=== PATIENT | female | born 2000 | race Hispanic/Latino ===

== ENCOUNTER 2025-02-20 06:09 | Emergency (ER) | payer BC, MEDICAID ==
[~2025-02-20] VITALS: Ht 152.4 cm; Wt 68.0 kg
--- NOTE | 2025-02-20 06:30 | NUR ---
PT CARE ASSUMED AT THIS TIME. PT GIVEN A URINE CUP TO COLLECT URINE AT THIS TIME.
[2025-02-20] MEDS: ondanSETRON 4MG INJ IVP ONE (06:42)
[2025-02-20 06:56] LABS: BASOPHILS # (AUTO) 0.06 K/uL (0.00-0.20); BASOPHILS % (AUTO) 0.4 % (0.0-5.0); EOSINOPHILS # (AUTO) 0.03 K/uL (0.00-0.70); EOSINOPHILS % (AUTO) 0.2 % (0.0-8.0); HEMATOCRIT 38.9 % (36-48); IMMATURE GRANULOCYTE ABSOLUTE 0.15 K/uL (0-1); LYMPHOCYTES # (AUTO) 2.4 K/uL (1.0-4.8); LYMPHOCYTES % (AUTO) 14.4 % (21.0-51.0); MEAN CORPUSCULAR HEMOGLOBIN 30.9 pg (27.0-33.0); MEAN CORPUSCULAR VOLUME 88.4 fL (79-99); MONOCYTES # (AUTO) 0.9 K/uL (0.1-1.0); MONOCYTES % (AUTO) 5.3 % (3.0-13.0); NEUTROPHILS # (AUTO) 13.1 K/uL (1.8-7.7); NEUTROPHILS % (AUTO) 78.8 % (40.0-77.0); PLATELET COUNT (AUTO) 377 K/uL (130-400); RED CELL DISTRIBUTION WIDTH 13.2 % (11.0-15.5); WHITE BLOOD COUNT (AUTO) 16.5 K/uL (4.8-10.8)
--- NOTE | 2025-02-20 07:02 | NUR ---
REPORT GIVEN TO KARINA BRAUN AT THIS TIME
[2025-02-20 07:19] LABS: POTASSIUM 3.6 mmol/L (3.5-5.1)
[2025-02-20] MEDS: acetaMINOPHEN 500 MG TABLET PO ONE (07:38)
[2025-02-20 08:13] LABS: APPEARANCE,URINE CLOUDY (CLEAR); BILIRUBIN,URINE NEGATIVE (NEGATIVE); COLOR,URINE LIGHT-YELLOW (YELLOW); GLUCOSE, URINE (UA) NEGATIVE (NEGATIVE); KETONES,URINE 40 mg/dL (NEGATIVE); LEUKOCYTE ESTERASE ,URINE 25 Leu/uL (NEGATIVE); NITRATE,URINE NEGATIVE (NEGATIVE); OCCULT BLOOD,URINE SMALL (NEGATIVE); PH,URINE 5.5 (5.0-8.0); PROTEIN,URINE NEGATIVE (NEGATIVE); UROBILINOGEN,URINE 0.2 mg/dL (0.2-1.0)
[2025-02-20 08:16] LABS: ADD UA MICROSCOPIC YES
[2025-02-20 08:19] LABS: AMPHET/METH SCREEN,URINE NEGATIVE (NEGATIVE); BARBITURATE SCREEN, URINE NEGATIVE (NEGATIVE); BENZODIAZEPINES SCREEN,URINE NEGATIVE (NEGATIVE); CANNABINOID SCREEN,URINE POSITIVE (NEGATIVE); COCAINE SCREEN,URINE NEGATIVE (NEGATIVE); MUCUS,URINE RARE LPF (None Seen); OPIATE SCREEN,URINE NEGATIVE (NEGATIVE); PHENCYCLIDINE SCREEN,URINE NEGATIVE (NEGATIVE); SQUAMOUS EPITHELIAL CELL,UR MOD /HPF (0-2)
[2025-02-20] MEDS: PANTOPrazole 40 MG/VIAL IVP ONE (08:29)
[2025-02-20] MEDS: 0.9%NACL 1000ML 1,000 ML IV ONE (08:29)
[2025-02-20] MEDS: ketOROlac 30MG VIAL (30MG/ML) IVP ONE (09:26)
[2025-02-20 09:29] LABS: BILIRUBIN,DIRECT 0.1 mg/dL (0.0-0.3); BILIRUBIN,TOTAL 0.3 mg/dL (0.2-1.0); TOTAL PROTEIN, SERUM 7.9 g/dL (6.0-8.3)
--- NOTE | 2025-02-20 10:22 | ERN ---
General Chief Complaint: Nausea,Vomiting,Diarrhea Stated Complaint: N/V, ABD PAIN Time Seen by MD: 07:17 Source: patient History of Present Illness Initial Comments Patient is a 24-year-old female coming in to be evaluated for generalized abdominal discomfort and nauseousness in the vomiting. Per patient this has been ongoing for a couple of days. Patient states he was told she had an ovarian cyst but has not followed up with [employer] yet. Allergies: Coded Allergies: No Known Allergies (Unverified Allergy, Unknown, 02/20/25) Past Medical History Past Medical History: No Pertinent History Past Surgical History: None Female( History) LMP: Jan 29, 2025 ROS Dictation CONSTITUTIONAL: No chills, no fever, no weakness, no diaphoresis, no malaise. HEAD/FACE: No signs of trauma. EENT: No eye pain, no blurred vision, no tearing, no double vision, no ear p ain, no ear discharge, no nose pain, no nasal congestion, no throat pain, no throat swelling, no mouth pain. RESPIRATORY: No cough, no orthopnea, no SOB, no stridor, no wheezing. CARDIOVASCULAR: No chest pain, no edema, no palpitations, no syncope. GASTROINTESTINAL/ABDOMINAL: abdominal pain, no constipation, no diarrhea, nausea, vomiting. GENITOURINARY: No abnormal discharge, no dysuria, no frequent urination, no hematuria. No complaints of pain in the genitals. MUSCULOSKELETAL: No back pain, no gout, no joint pain, no joint swelling, no muscle pain, no muscle stiffness, no neck pain. INTEGUMENTARY: No change in color, no change in hair/nails, no dryness, no lesion, no lumps, no rash. NEUROLOGICAL/PSYCH: No anxiety, not depressed, no emotional problem, no headache, no numbness, no pre-existing deficit, no history of seizures, no tremors, no weakness. HEMATOLOGIC/LYMPHATIC: Not anemic, no history of blood clots, no apparent bleeding, no bruising, glands not swollen. All Systems Negative, Except as Noted. Physical Exam Physical Exam Dictation VITAL SIGNS: Reviewed. GENERAL APPEARANCE: Alert, oriented x3, no acute distress, obese. HEAD AND FACE: Non-traumatic. EYES: PERRL, pink conjunctivas, eyelid no trauma, anterior chamber clear. EARS: Pinnas intact and no signs of trauma or erythema. Ear canals clear and no discharge. TMs no erythema. NOSE: No discharge, no bleeding. OROPHARYNX: Mouth normal, teeth no caries, tongue pink. Pharynx clear, no mony thema. Tonsils no exudates, no abscesses noted. Mucous membrane moist. NECK: Supple, non-tender, no thyromegaly, no masses, no JVD, no bruits. BREAST: Deferred. CHEST: No tenderness, no crepitus, no paradoxical movement, no retractions. LUNGS: Clear, well-ventilated, symmetric, no rales, no wheezing, no rhonchi, no stridor, good breath sounds bilaterally. HEART: Regular rate, regular rhythm, no murmur, no gallops. VASCULAR: No peripheral edema. ABDOMEN: Soft, positive bowel sounds, nondistended, no guarding, lower abdominal tender, no rebound, no masses no hepatomegaly, no splenomegaly, no Uriarte's sign, no hernias. RECTAL: Deferred. GENITAL: Deferred. NEUROLOGICAL: Normal speech, gross motor function intact, gross sensory function intact. MUSCULOSKELETAL: Neck nontender, full range of motion, back nontender, full range of motion. EXTREMITIES: Nontender, full range of motion. SKIN: Color pink, dry, no turgor, no rash, no lacerations, no abrasions, no contusions. LYMPHATICS: Deferred. Results Laboratory and Microbiology Lab and Micro Result Laboratory Tests Test 02/20/25 06:35 02/20/25 07:25 White Blood Count 16.5 K/uL (4.8-10.8) H Red Blood Count 4.40 MIL/uL (4.00-5.50) Hemoglobin 13.6 g/dL (12.0-16.0) Hematocrit 38.9 % (36-48) Mean Corpuscular Volume 88.4 fL (79-99) Mean Corpuscular Hemoglobin 30.9 pg (27.0-33.0) Mean Corpuscular Hemoglobin Concent 35.0 g/dL (32.0-36.0) Red Cell Distribution Width 13.2 % (11.0-15.5) Platelet Count 377 K/uL (130-400) Mean Platelet Volume 10.6 fL (7.5-10.5) H Immature Granulocyte % (Auto) 0.9 % (0-1) Neutrophils (%) (Auto) 78.8 % (40.0-77.0) H Lymphocytes (%) (Auto) 14.4 % (21.0-51.0) L Monocytes (%) (Auto) 5.3 % (3.0-13.0) Eosinophils (%) (Auto) 0.2 % (0.0-8.0) Basophils (%) (Auto) 0.4 % (0.0-5.0) Neutrophils # (Auto) 13.1 K/uL (1.8-7.7) H Lymphocytes # (Auto) 2.4 K/uL (1.0-4.8) Monocytes # (Auto) 0.9 K/uL (0.1-1.0) Eosinophils # (Auto) 0.03 K/uL (0.00-0.70) Basophils # (Auto) 0.06 K/uL (0.00-0.20) Absolute Immature Granulocyte (auto 0.15 K/uL (0-1) Nucleated Red Blood Cells 0.0 % (0.0-0.19) Sodium Level 139 mmol/L (136-145) Potassium Level 3.6 mmol/L (3.5-5.1) Chloride Level 103 mmol/L (101-111) Carbon Dioxide Level 19 mmol/L (21-32) L Blood Urea Nitrogen 7 mg/dL (7-18) Creatinine 1.0 mg/dL (0.5-1.0) Glomerular Filtration Rate Calc 80 mL/min (>90) Random Glucose 147 mg/dL (70-105) H Total Calcium 9.0 mg/dL (8.5-10.1) Total Bilirubin 0.3 mg/dL (0.2-1.0) Direct Bilirubin 0.1 mg/dL (0.0-0.3) Aspartate Amino Transf (AST/SGOT) 19 U/L (10-37) Alanine Aminotransferase (ALT/SGPT) 45 U/L (12-78) Alkaline Phosphatase 56 U/L (50-136) Total Creatine Kinase 193 U/L (21-232) Total Protein 7.9 g/dL (6.0-8.3) Albumin 4.0 g/dL (3.5-5.0) Lipase 38 U/L (16-77) Human Chorionic Gonadotropin, Quant 0 mIU/mL (0-5) Urine Color LIGHT-YELLOW (YELLOW) Urine Appearance CLOUDY (CLEAR) H Urine pH 5.5 (5.0-8.0) Urine Specific [place] 1.019 (1.001-1.031) Urine Protein NEGATIVE mg/dL (NEGATIVE) Urine Glucose (UA) NEGATIVE mg/dL (NEGATIVE) Urine Ketones 40 mg/dL (NEGATIVE) H Urine Occult Blood SMALL (NEGATIVE) H Urine Nitrate NEGATIVE (NEGATIVE) Urine Bilirubin NEGATIVE mg/dL (NEGATIVE) Urine Urobilinogen 0.2 mg/dL (0.2-1.0) Urine Leukocyte Esterase 25 Arturo/uL (NEGATIVE) H Urine RBC 2-5 /HPF (0-1) H Urine WBC 2-5 /HPF (0-1) H Urine Squamous Epithelial Cells MOD /HPF (0-2) Urine Bacteria None /HPF (None Seen) Urine Opiates Screen NEGATIVE (NEGATIVE) Urine Barbiturates Screen NEGATIVE (NEGATIVE) Urine Phencyclidine Screen NEGATIVE (NEGATIVE) Urine Amphetamines Screen NEGATIVE (NEGATIVE) Urine Benzodiazepines Screen NEGATIVE (NEGATIVE) Urine Cocaine Screen NEGATIVE (NEGATIVE) Urine Marijuana (THC) Screen POSITIVE (NEGATIVE) H Labs Reviewed?: Yes EKG/XRAY/US/CT/MRI Ultrasound Comment [place] [address] [address] IMAGING REPORT Signed PATIENT: MARISA WIGGINS MR#: [id number] : 2000 SEX: F AGE: 24 LOCATION: [facility] ORDER 3 STATUS: REG REPORT#: [id number] SERVICE 2 REASON: ovarian cyst hx pain ORDERING PHYSICIAN: AASHISH PAIGE MD PROCEDURE: PELVCOMP - US PELVIC NON-OB COMP US PELVIC NON-OB COMP HISTORY: Pain COMPARISON: None TECHNIQUE: Transabdominal pelvic ultrasound study was performed. FINDINGS: The uterus measures 8.7 x 3.3 x 5.6 cm. The right ovary measures 2 x 1.6 x 1.8 cm. The left ovary is not well visualized. There is right adnexal cyst measuring 16 mm. Endometrial thickness is 2 mm. No free fluid is seen in the cul-de-sac. IMPRESSION: 1. No adnexal mass is seen. Right adnexal cyst measuring 16 mm. DICTATED BY: ROMARIO TERRY MD DATE: 02/20/25 1049 ELECTRONICALLY SIGNED BY: ROMARIO TERRY MD DATE: 02/20/25 1052 [facility] MDM: Differential diagnosis: Ovarian cyst, adnexal cyst, cannabis abuse Patient is a 24-year-old female coming in to be evaluated for lower abdominal discomfort and nauseousness and vomiting. Patient's laboratory workup she was positive for cannabis. Ultrasound disclose an adnexal cyst but no torsion. Patient will be discharged in stable condition she states his pain has subsided with Toradol. It did I advised her appropriate follow up with legal entity controller in 1-2 days. ED Course Orders Procedure Category Date Status Time Cbc With Differential LAB 02/20/25 Complete 06:28 Hcg,Quantitative LAB 02/20/25 Complete 06:28 Urinalysis Profile LAB 02/20/25 Complete 06:28 Ondansetron 4mg Inj PHA 02/20/25 Complete (Zofran 4mg Inj) 06:30 Lipase LAB 02/20/25 Complete 06:28 Basic Metabolic Panel LAB 02/20/25 Complete 06:28 Acetaminophen 500mg PHA 02/20/25 Complete Tab (Tylenol 500mg T 07:30 Drug Screen Urine LAB 02/20/25 Complete 07:31 Creatine Kinase, Total LAB 02/20/25 Complete 07:31 Hepatic Function Panel LAB 02/20/25 Complete 07:32 0.9%Nacl 1000ml (Ns PHA 02/20/25 Complete 1000ml) 08:30 Pantoprazole 40mg Inj PHA 02/20/25 Complete (Protonix 40mg Inj 08:30 Ketorolac PHA 02/20/25 Complete Tromethamine 30mg/Ml 09:30 Us Pelvic Non-Ob Comp US 02/20/25 Resulted 09:13 Current Medications Medications (Trade) Dose Ordered Sig/Johann Route PRN Reason Start Time Stop Time Status Last Admin Dose Admin Acetaminophen (TYLenol 500MG TAB) 1,000 mg ONCE ONCE PO 02/20/25 07:30 02/20/25 07:33 DC 02/20/25 07:38 Ketorolac Tromethamine (toRADol) 30 mg ONCE ONCE IVP 02/20/25 09:30 02/20/25 09:31 DC 02/20/25 09:26 Ondansetron HCl (zoFRAN 4MG INJ) 4 mg ONCE ONCE IVP 02/20/25 06:30 02/20/25 06:32 DC 02/20/25 06:42 Pantoprazole Sodium (PROTonix 40MG INJ) 40 mg ONCE ONCE IVP 02/20/25 08:30 02/20/25 08:31 DC 02/20/25 08:29 Sodium Chloride 1,000 ml @ 0 mls/hr ONCE ONCE IV 02/20/25 08:30 02/20/25 08:31 DC 02/20/25 08:29 Vital Signs Date Time Temp Pulse Resp B/P (MAP) Pulse Ox O2 Delivery O2 Flow Rate FiO2 02/20/25 08:22 97.9 79 18 121/76 96 Room Air* 0 21 02/20/25 06:30 98.1 90 20 138/64 99 Room Air* 0 21 02/20/25 06:10 98.1 92 20 127/71 98 Room Air DX & DISP Disposition: Discharge Departure Impression: Primary Impression: Cannabis abuse Additional Impression: Adnexal cyst Condition: Stable Scripts Naproxen (Naproxen) 500 Mg Tablet 1 TAB PO BID for pain for 7 Days, #14 TAB 0 Refills Prov: AASHISH PAIGE MD 02/20/25 Additional Instructions: FOLLOW-UP WITH PRIMARY CARE PROVIDER IN 1 TO 2 DAYS. TAKE MEDICATIONS DIRECTED HERE IN THE EMERGENCY ROOM. OKAY TO CONTINUE HOME MEDICATIONS UNLESS OTHERWISE DISCUSSED DURING YOUR VISIT IN THE EMERGENCY ROOM TODAY. RETURN TO YOUR NEAREST EMERGENCY ROOM IF SYMPTOMS WORSEN OR IF THERE IS NO IMPROVEMENT. CALL 911 IF YOU NEED IMMEDIATE ASSISTANCE. TAKE TYLENOL [id number] NEEDED AND IF NO CONTRAINDICATIONS ARE PRESENT. INCREASE ORAL HYDRATION. A WOUND CULTURE OR URINE CULTURE WAS ORDERED HERE IN THE EMERGENCY ROOM DEPARTMENT PLEASE FOLLOW-UP WITH PRIMARY CARE PROVIDER AND ADVISE THEM TO GET REPEAT PORTS FROM OUR FACILITY. IF YOU HAD ANY YUSUF WRAP/SPLINTS THAT WERE APPLIED HERE, PLEASE DO NOT REMOVE THEM UNTIL YOU SEE YOUR PRIMARY CARE OR SPECIALTY. REFERRALS: Referrals: SELF,REFERRAL (PCP) SANDI SHIPMAN MD Time of Disposition: 10:58 AASHISH PAIGE MD Feb 20, 2025 10:22
--- NOTE | 2025-02-20 10:52 | HMCIMG ---
US PELVIC NON-OB COMP HISTORY: Pain COMPARISON: None TECHNIQUE: Transabdominal pelvic ultrasound study was performed. FINDINGS: The uterus measures 8.7 x 3.3 x 5.6 cm. The right ovary measures 2 x 1.6 x 1.8 cm. The left ovary is not well visualized. There is right adnexal cyst measuring 16 mm. Endometrial thickness is 2 mm. No free fluid is seen in the cul-de-sac. IMPRESSION: 1. No adnexal mass is seen. Right adnexal cyst measuring 16 mm.
[2025-02-20] MEDS ORDERED: NAPR-1194 PO (10:58)
[2025-02-20 11:30] VITALS: BP 115/70; PULSE 72; RESP 16; TEMP 97.8; O2SAT 97
== END 2025-02-20 11:30 | disposition home or self-care (01) ==
LOC: EDH 06:09
DX: F12.10 Cannabis abuse, uncomplicated (principal); N28.1 Cyst of kidney, acquired
CPT/HCPCS: 99284; 96374; 76856; 96375; 96361; 82550; 80076; 80048; 80305; 84702; 83690; 85025; 36415; 81001; J1885; J7030; J2405; J2470